=== PATIENT | female | born 1945 | race Caucasian/White ===

== ENCOUNTER → 2016-04-24 | Outpatient (CLI) | payer MEDICARE, BC ==
[~2016-04-24] MED LIST: ASPI-535 PO; ASPI325T32 PO; ATOR10TA65 PO; DICL1TAB53 PO; DOCU-144 PO; FLUT16SP17 NASAL; GLUC500T11 PO; HYDR-906 PO; IBAN150T7 PO; LISI10TA2 PO; MELO-109; PANT40TA4 PO; TRAM50TA2 PO
--- NOTE | 2016-04-24 12:58 | RADRPT ---
PROCEDURE: XR Left hip and pelvis. CLINICAL INDICATION: Left hip pain and pelvic pain. TECHNIQUE: 3 views. Frontal pelvis. Frontal and lateral left hip. COMPARISON: 11/16/2012. FINDINGS: There is no fracture or dislocation. The soft tissues are normal. There are degenerative changes of both hips with large osteophytes and joint space narrowing, worse than seen previously. Calcified fibroids are present in the pelvis. There is no lytic or blastic lesion. The upper pelvis is not included on the images. IMPRESSION: 1. Moderate degenerative changes of both hips, worse than seen previously. 2. Calcified fibroids in the pelvis. 3. Otherwise unremarkable study. RPTAT: QQ .Pieter Saini MD, MD Date Time Electronically viewed and signed by .Pieter Saini MD, on 04/24/2016 12:58 .R/
== END | disposition home or self-care (01) ==
LOC: HKI 10:58
PROVIDERS: ATTEND Orthopaedic Surgery
DX: Z01.818 Encounter for other preprocedural examination (principal); M16.0 Bilateral primary osteoarthritis of hip; M25.552 Pain in left hip; M25.551 Pain in right hip
CPT/HCPCS: 73502; G0463

== ENCOUNTER 2016-04-30 05:32 | Inpatient (IN) | payer MEDICARE, BC ==
[2016-04-29 09:01] VITALS: Ht 162.6 cm; Wt 57.8 kg
[2016-04-30] VITALS (18 sets, daily range): BP systolic 91–132; BP diastolic 48–72; PULSE 52–108; RESP 10–62
[~2016-04-30] VITALS: Ht 162.6 cm; Wt 57.8 kg
[2016-04-30] MEDS ORDERED: PREGABALIN 100 MG CAP ONE (06:26)
[2016-04-30] MEDS ORDERED: DICL1TAB53 PO (06:54)
[2016-04-30] MEDS ORDERED: ATOR10TA65 PO (06:54)
[2016-04-30] MEDS ORDERED: IBAN150T7 PO (06:54)
[2016-04-30] MEDS ORDERED: GLUC500T11 PO (06:54)
[2016-04-30] MEDS ORDERED: FLUT16SP17 NASAL (06:54)
[2016-04-30] MEDS ORDERED: ASPI-535 PO (06:54)
[2016-04-30] MEDS ORDERED: MELO-109 (06:54)
[2016-04-30] MEDS ORDERED: LISI10TA2 PO (06:54)
[2016-04-30] MEDS ORDERED: POLYMYXIN B 500000 UNIT INJ ONE (06:55)
[2016-04-30] MEDS ORDERED: SODIUM CL BACTERIOSTATIC 30 ML INJ ONE (06:55)
[2016-04-30] MEDS ORDERED: VANCOMYCIN 1 GM INJ ONE (06:56)
[2016-04-30] MEDS ORDERED: BACITRACIN 50000 UNITS INJ ONE (06:57)
[2016-04-30] MEDS ORDERED: PROPOFOL 100 ML ONE (06:59)
[2016-04-30] MEDS ORDERED: ETOMIDATE 20 MG INJ ONE (06:59)
[2016-04-30] MEDS ORDERED: ROCURONIUM 50 MG INJ ONE (06:59)
[2016-04-30] MEDS ORDERED: NEOSTIGMINE 3 MG/3 ML SYRINGE ONE (06:59)
[2016-04-30] MEDS ORDERED: GLYCOPYRROLATE 1 MG INJ ONE (06:59)
[2016-04-30] MEDS ORDERED: LIDOCAINE 100 MG SYRINGE ONE (06:59)
[2016-04-30] MEDS ORDERED: PAIN COCKTAIL-CEFUROXIME IRR SCH ×7 (07:00)
[2016-04-30] MEDS ORDERED: MELOXICAM 15 MG TAB PO SCH (07:00)
[2016-04-30] MEDS ORDERED: ONDANSETRON 4 MG INJ ONE (07:00)
[2016-04-30] MEDS ORDERED: SOD CHLORIDE 0.9% IV ONE (07:00)
[2016-04-30] MEDS ORDERED: DEXAMETHASONE 4 MG/ML 1 ML INJ ONE (07:00)
[2016-04-30] MEDS ORDERED: CEFAZOLIN 1 GM INJ ONE (07:00)
[2016-04-30] MEDS ORDERED: EXPAREL NOTE (BUPIVICAINE LIPOSOMAL) XX SCH (07:00)
[2016-04-30] MEDS ORDERED: traMADOL 50 MG TAB X 1 DOSE PO ONE (07:00)
[2016-04-30] MEDS ORDERED: oxyCODONE (CR) 10 MG TAB [oxyCONTIN] X1 DOSE PO ONE (07:00)
[2016-04-30] MEDS ORDERED: MIDAZOLAM 1 MG/ML 2 ML INJ ONE (07:00)
[2016-04-30] MEDS ORDERED: TRANEXAMIC ACID 580 MG in SOD CHLORIDE 0.9% 100 ML IVPB SCH (07:00)
[2016-04-30] MEDS ORDERED: CEFAZOLIN 2GM/50 ML (PMX) 50 ML X1 BEFORE INCISION IVPB ONE (07:00)
[2016-04-30] MEDS ORDERED: TRANEXAMIC ACID IV ONE (07:00)
[2016-04-30] MEDS ORDERED: FENTAnyl 50 MCG/ML VIAL ONE (07:00)
[2016-04-30] MEDS: LACTATED RINGER'S 1,000 ML IV SCH ×4 (07:00→17:39)
--- NOTE | 2016-04-30 07:18 | HPN ---
Date/Time of Note Date/Time of Note DATE: 04/30/16 TIME: 07:17 Interval H&P Admission Note Pt. seen H&P reviewed: No system changes No change from H&P on 04/16/16 by STAN Gardner MD Apr 30, 2016 07:17
[2016-04-30] MEDS ORDERED: hydrALAzine 20 MG INJ IV PRN (08:00)
[2016-04-30] MEDS ORDERED: ONDANSETRON 4 MG INJ IV PRN ×2 (08:00→14:00)
[2016-04-30] MEDS ORDERED: DIPHENHYDRAMINE 50 MG INJ IV PRN (08:00)
[2016-04-30] MEDS ORDERED: LABETALOL HCL 20MG INJ IV PRN (08:00)
[2016-04-30] MEDS ORDERED: HYDROmorphONE (0.2 MG/ML) 10ML SYG IV PRN ×3 (08:00)
[2016-04-30] MEDS ORDERED: MEPERIDINE 25 MG INJ IV PRN (08:00)
[2016-04-30] MEDS ORDERED: FENTAnyl 50 MCG/ML VIAL IV PRN ×3 (08:00)
[2016-04-30] MEDS ORDERED: MIDAZOLAM 1 MG/ML 2 ML INJ IV PRN (08:00)
[2016-04-30] MEDS ORDERED: EPHEDrine SULFATE 50 MG/5 ML SYG IV PRN (08:00)
[2016-04-30] MEDS ORDERED: TRIMETHOBENZAMIDE 100 MG/ML VIAL IM PRN (08:00)
--- NOTE | 2016-04-30 09:39 | OPPN ---
Date/Time of Note Date/Time of Note DATE: 04/30/16 TIME: 09:38 Operative/Procedure Note Dictation # [id number] Pre-Operative Diagnosis Left Hip OA Post-Operative Diagnosis Same Procedure Left Anterior VIVI Surgeon: STAN CHINO MD Psychologist: DAVONTE MISHRA PA-C Anesthesiologist: Adrien Fitzgerald M.D. Findings Severe OA Blood Usage/Administration None Implants/Grafts Depuy VIVI Estimated blood loss: 250 - 300 ml's Drains Hemovac x 1 Specimens Femoral Head Complications: None Anesthesia type: spinal STAN CHINO MD Apr 30, 2016 09:39
--- NOTE | 2016-04-30 09:59 | PN ---
Date/Time of Note Date/Time of Note DATE: 04/30/16 TIME: 09:56 Assessment/Plan Lines/Catheters IV Catheter Type (from Nrsg): Peripheral IV Assessment/Plan Assessment/Plan Stable in PACU, s/p left anterior VIVI -cont abx -pain meds -ASA/SCDs -monitor drain -OOB with PT -check AM labs -d/c aaron in AM XR of the left hip is pending at this time Subjective 24 Hr Interval Summary Stable in PACU. Denies significant pain. Moving all extremities. Exam/Review of Systems Vital Signs Vitals Vital Signs Date Time Temp Pulse Resp B/P Pulse Ox O2 Delivery O2 Flow Rate FiO2 04/30/16 09:50 98.1 04/30/16 06:45 61 18 132/72 100 Room Air Intake and Output 04/29/16 04/29/16 04/30/16 15:00 23:00 07:00 Intake Total 0 ml Balance 0 ml Exam Free Text/Dictation Dressing dry Incision clean, dry, and intact without redness or drainage 5/5 Quadriceps, Tibialis Anterior, EHL, Gastroc, Soleus, Peroneals Normal sensation Palpable DT/PT, CR <2 sec No distal edema DAVONTE MIHSRA PA-C Apr 30, 2016 09:58
[2016-04-30] MEDS ORDERED: NA PHOSPHATE/BIPHOS 133 ML ENEMA PR PRN (10:00)
[2016-04-30] MEDS ORDERED: NACL 0.9% 3 ML SYG IV SCH (10:00)
[2016-04-30] MEDS ORDERED: ASPIRIN (EC) 325 MG TAB PO ONE ×2 (10:00→10:01)
[2016-04-30] MEDS ORDERED: BISACODYL 10 MG SUPP PR PRN (10:00)
[2016-04-30] MEDS ORDERED: MAGNESIUM HYDROXIDE 30ML CUP PO PRN (10:00)
[2016-04-30 10:13] LABS: HEMATOCRIT 33.7 % (37.0-47.0); HEMOGLOBIN 11.4 g/dl (12.0-16.0)
[2016-04-30] MEDS: CEFAZOLIN 2 GM/50 ML (PMX) 50 ML IVPB SCH ×2 (10:15→17:40)
[2016-04-30 10:30] LABS: CALCIUM 8.9 mg/dl (8.4-10.2); CREATININE 0.73 mg/dl (0.44-1.00)
--- NOTE | 2016-04-30 10:41 | RADRPT ---
PROCEDURE: XR Left Hip. CLINICAL INDICATION: Post op in PACU left total hip prosthesis. TECHNIQUE: AP and frog lateral views of the left hip were performed. COMPARISON: None. FINDINGS: Intact leftward hip prosthesis with anatomic alignment of left femoral S10-8 bones. No evidence of fracture, dislocation, or hardware failure. The visualized pelvis and sacrum are intact. IMPRESSION: Intact left total hip prosthesis with anatomic alignment. RPTAT:AAJJ Arcelia Antonio Physician Date Time Electronically viewed and signed by Physician Dl on 04/30/2016 10:41 COREY/
--- NOTE | 2016-04-30 10:41 | RADRPT ---
PROCEDURE: Pelvis x-ray CLINICAL INDICATION: Post op in PACU total hip replacement. TECHNIQUE: Single AP view of the pelvis performed. COMPARISON: None FINDINGS: There is a left total hip prosthesis in place with anatomic alignment of the femoral mass and bones. No evidence of loosening, fracture, or dislocation. Advanced osteoarthritic degenerative changes of the right hip joint with subchondral sclerosis of the acetabular roof and joint line spurring is noted. Prominent femoral head joint line spurring is present greatest inferiorly and medially. Deg enerate changes of the sacroiliac joints bilaterally left greater than right. Calcified uterine fib roids. IMPRESSION: Intact left total hip prosthesis. Degenerative changes of the right hip and sacroiliac joints as de scribed above. RPTAT:AAJJ Physician Dl Date Time Electronically viewed and signed by Physician Dl on 04/30/2016 10:40 COREY/
--- NOTE | 2016-04-30 10:45 | RADRPT ---
PROCEDURE: Fluoroscopy. CLINICAL INDICATION: Intraoperative fluoroscopic guidance. Left total hip prosthesis. TECHNIQUE: Fluoroscopic guidance provided for intraoperative procedure. COMPARISON: 04/15/2016 CT abdomen. FINDINGS: 0.8 minutes fluoroscopy time was used. 16 intraoperative spot radiographs obtained. Left total hip placement. IMPRESSION: Fluoroscopic guidance provided for intraoperative procedure. RPTAT:AAJJ Physician Dl Date Time Electronically viewed and signed by Physician Dl on 04/30/2016 10:44 COREY/
[2016-04-30] MEDS: traMADol 50 MG TAB PO SCH ×3 (11:38→23:49)
[2016-04-30] MEDS: ACETAMINOPHEN 1000MG/100ML IV 100 ML IVPB SCH ×2 (11:39→17:39)
--- NOTE | 2016-04-30 12:59 | OPR ---
DATE OF OPERATION: 04/30/2016 DATE: 04/30/2016. PREOPERATIVE DIAGNOSIS: Left hip osteoarthritis. POSTOPERATIVE DIAGNOSIS: Left hip osteoarthritis. OPERATION PERFORMED: Left anterior total hip arthroplasty. SURGEON: Stan Ghotra MD ADJUSTMENT EXAMINER: DEVANG Hernadez COMPONENTS USED: DePuy size 52 mm Gription pinnacle cup, 52/36 neutral Ultrex polyethylene liner, s ize 6 standard ACTIS stem, 36+5 ceramic head. ANESTHESIA: Spinal plus general endotracheal intubation plus periarticular injection. ANESTHESIOLOGIST: Dr. Vance ESTIMATED BLOOD LOSS: 250 mL . INTRAVENOUS FLUIDS: Crystalloid 2100 mL SPECIMENS: Femoral head. DRAINS: Hemovac x1 COMPLICATIONS: None. DISPOSITION: The patient tolerated the procedure well and was taken to the recovery room in stable c ondition. INDICATIONS: The patient is a 70-year-old woman who has had progressive worsening pain in the left h ip with radiographic evidence of severe osteoarthritis. She has failed non-surgical means of treatm ent to control her pain, including activity modifications, pain medications and ambulatory assist de vices. Despite these measures, she has had worsening pain. I felt she would benefit from a total h ip arthroplasty with an anterior approach. I felt the patient would benefit from a total hip arthroplasty through an anterior approach. The risks, benefits, and alternatives of the procedure were explained in detail to the patient. I ex plained the risks of the surgery to include, but not be limited to: bleeding and possible need for b lood transfusion; infection; pain; stiffness; neurovascular injury with possible numbness, weakness, and/or paralysis anywhere from the hip down to the toes; fracture; instability; dislocation; leg le ngth inequality; wear and/or loosening of the prosthesis and possible need for future revision; bloo d clots; pulmonary embolism; and anesthetic complications such as heart attack, stroke, GI bleed, pn eumonia, and/or . Ample time was allowed for the patient to ask questions, all of which were ad dressed and answered. The patient understood the risks involved and wished to proceed. Informed cons ent was signed prior to the procedure. PROCEDURE: The patient's left hip was initialed with a marking pen in the preoperative area to ident navid the correct operative site. The patient was brought to the operating room and transferred from [facility] to the [facility] where a spinal anesthetic was administered. The patient was the n anesthetized and intubated. A Newman catheter was placed. Both feet were placed into well-padded keyon ots which were then placed into the leg holders of the traction booms. A timeout was performed to co nfirm that the left side was the correct operative site. The patient was given 2 g of intravenous An cef within one hour prior to the procedure. The operative hip was prepped and draped in the usual st erile fashion. A 10 cm oblique incision was made over the anterior aspect of the hip and carried down through subcu taneous tissue and fat with sharp dissection. The tensor fascia aurelio was incised along the length of the wound. The tensor fascia muscle was retracted laterally and the sartorius medially. The anterio r circumflex vessels were identified and tied off with 2-0 silk suture and coagulated with the [employer] loom fixer helper. The rectus femoris was elevated off the anterior capsule and an anterior capsulec arsen performed. A femoral neck osteotomy was made and the head removed from the acetabulum. The acet abulum was denuded of cartilage circumferentially, as was the femoral head. Retractors were placed a round the acetabulum. The remnants of the labrum and ligamentum teres were excised. I reamed the porter tabulum to the medial wall and then went into an anatomic position and increased the reamer size in 2 mm increments until I got a good bite and was down to bleeding subchondral bone. The [place] cup was opened and impacted into the acetabulum and sat flush circumferentially, gettin g a good bite. C-arm imaging showed it had about 40 to 45 degrees of abduction and 20 degrees of ant eversion. The real liner was opened and impacted into the acetabulum and sat flush circumferentially . Attention was turned towards the femur. The operative leg was carefully lowered to the floor with the leg adducted. The foot was then roll mill operator ally rotated to approximately 110 degrees. A posteromedial release was performed to optimize exposur e. The femoral hook was placed underneath the proximal femur and the hydraulic lift was then used to elevate the femur up out of the wound. The cooknilesh cutter osteotome was used to remove the remaining overhanging greater trochanter. The femur was then broached, going up in one size increments until it sat flush with the neck cut and a stable fit was achieved. The trial neck and head were assembled and reduced into the acetabulum. Fluoroscopic imaging showed the components to be in good position and the leg lengths and offsets to be equal. At this point, the trial was dislocated and the trial broach removed. The canal was irrigated and dr ahumada. The real stem was opened and impacted into the femur. The trunnion was irrigated and dried, and the real femoral head was impacted onto the trunnion, and reduced into the acetabulum. The soft tissues were infiltrated with a mixture of 150 mg of 0.5% Bupivacaine, 8 mg of Duramorph, 3 00 mcg of epinephrine, 30 mg of Toradol, 100 mcg of clonidine, 750 mg of cefuroxime and 86 mL of nor mal saline, followed by an injection of 266 mg of liposomal Bupivacaine. At this point the hip was i rrigated with a mixture of betadine/saline and then antibiotic saline with pulsatile lavage. A Hemov ac drain was placed in the deep portion of the wound and brought out the anterolateral thigh. There was good hemostasis. The tensor fascia aurelio was repaired with a running #1 Vicryl. The deep fat laye r was irrigated and closed with 2-0 Stratafix and the subcutaneous layer closed with 3-0 Stratafix a nd the skin was sealed with Prineo Dermabond. The drain was secured with 3-0 nylon. Dictated By: STAN FREEMAN/LASHAY Conf#: [id number] DID#: [id number]
[2016-04-30] MEDS: LISINOPRIL 10 MG TAB PO SCH (13:30)
[2016-04-30] MEDS ORDERED: HYDROmorphONE 1 MG/ML SYG IV PRN (14:00)
[2016-04-30] MEDS ORDERED: oxyCODONE 5 MG TAB PO PRN ×2 (14:00)
[2016-04-30] MEDS ORDERED: DIPHENHYDRAMINE 25 MG CAP PO PRN (14:00)
--- NOTE | 2016-04-30 14:23 | CONS ---
DATE OF ADMISSION: 04/30/2016 DATE OF CONSULTATION: 04/30/2016 TYPE OF CONSULTATION: Postoperative medical. Dear Dr. Ghotra: Thank you very much for allowing me to evaluate the above patient who just underwent left total hip replacement. HISTORICAL EVENTS: As you well know, this patient has had progressive disabling pain involving her left hip and for this, underwent surgery today. Postoperatively, on the orthopedic floor. She jesse es cough, wheezing, shortness of breath, nausea, vomiting, abdominal or chest pain and notes only mi ld discomfort involving her left hip. MEDICATIONS PRIOR TO ADMISSION: 1. Aspirin 81 mg. 2. Glucosamine 500 mg b.i.d. 3. Lisinopril 10 mg per day. 3. Fish oil 1000 mg b.i.d. 4. Flonase 50 mcg 1 spray in each nostril daily. 5. Boniva 150 mg a day. 6. Atorvastatin 10 mg per day. 7. Meloxicam 15 mg per day. PAST MEDICAL HISTORY: Includes hypertension, hyperlipidemia, osteoporosis, low back pain, undergoin g surgery 3 to 4 years ago. FAMILY HISTORY: Positive for multiple myeloma, hypertension, hyperlipidemia. SOCIAL HISTORY: She is a nonsmoker, does not drink. 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 Has 2 sons. ALLERGIES: SULFA. PHYSICAL EXAMINATION: GENERAL: [place] female in no acute distress. VITAL SIGNS: BP 122/80, pulse 70, respirations are 20, she was afebrile. EYES: Extraocular muscles were full. NOSE, MOUTH, AND THROAT: Normal. NECK: Supple. There was no jugular venous distention, thyroid enlargement or adenopathy. Carotids 2+, no bruits. LUNGS: Clear. HEART: Rhythm regular, no murmur. No third or fourth sound. ABDOMEN: Nontender. Liver and spleen were not palpable. No masses or tenderness were noted. EXTREMITIES: No edema, no calf tenderness. Pulses 2+. IMPRESSION: 1. Stable postoperative left hip replacement. 2. History of hypertension. Will continue her LIVIER inhibitor and monitor BP closely. 3. Will follow daily for signs and symptoms of thromboembolic disease despite appropriate DVT proph ylaxis. 4. Hyperlipidemia. Continue statin therapy. Dictated By: NAHUM QIU MD MR/LASHAY Conf#: [id number] DID#: [id number]
[2016-04-30] MEDS ORDERED: PREGABALIN 300 MG PO X1 PO ONE (15:00)
[2016-04-30] MEDS ORDERED: BUPIVACAINE LIPOSOME/PF 266 MG/20 ML VIAL INFIL SCH (15:00)
[2016-04-30] MEDS: PANTOPRAZOLE (EC) 40 MG TAB PO SCH (17:39)
[2016-04-30] MEDS: DOCUSATE SODIUM 100 MG CAP PO SCH (20:37)
[2016-04-30] MEDS: ATORVASTATIN 10 MG TAB PO SCH (20:37)
[2016-04-30] MEDS: PREGABALIN 25 MG CAP PO SCH (20:38)
[2016-05-01] MEDS: ACETAMINOPHEN 1000MG/100ML IV 100 ML IVPB SCH ×2 (00:03→05:41)
[2016-05-01] MEDS: LACTATED RINGER'S 1,000 ML IV SCH ×6 (01:22→23:00)
[2016-05-01] MEDS: CEFAZOLIN 2 GM/50 ML (PMX) 50 ML IVPB SCH (02:32)
[2016-05-01 05:07] LABS: HEMATOCRIT 28.8 % (37.0-47.0); HEMOGLOBIN 9.7 g/dl (12.0-16.0)
[2016-05-01 05:33] LABS: POTASSIUM 4.5 mmol/L (3.5-5.1)
[2016-05-01 05:36] LABS: CALCIUM 8.9 mg/dl (8.4-10.2); CREATININE 0.79 mg/dl (0.44-1.00)
[2016-05-01] MEDS: PANTOPRAZOLE (EC) 40 MG TAB PO SCH ×2 (05:41→17:43)
[2016-05-01] MEDS: traMADol 50 MG TAB PO SCH ×4 (05:41→23:59)
[2016-05-01 07:00] VITALS: BP 102/52; RESP 60
[2016-05-01] MEDS: PREGABALIN 25 MG CAP PO SCH ×2 (08:35→20:27)
[2016-05-01] MEDS: ASPIRIN (EC) 325 MG TAB PO SCH ×2 (08:35→20:27)
[2016-05-01] MEDS: DOCUSATE SODIUM 100 MG CAP PO SCH ×2 (08:35→20:27)
[2016-05-01] MEDS: FLUTICASONE 0.05% 16 GM NAS SPRAY NASAL SCH (08:36)
[2016-05-01] MEDS: LISINOPRIL 10 MG TAB PO SCH (08:37)
--- NOTE | 2016-05-01 08:49 | CONS ---
Date/Time of Note Date/Time of Note DATE: 05/01/16 TIME: 08:48 Assessment/Plan Assessment/Plan Additional Assessment/Plan 1. Stable postoperative left hip replacement. 2. History of hypertension, BP controlled 3. Hyperlipidemia, to continue statin therapy. Consultation Date/Type/Reason Admit Date/Time Apr 30, 2016 at 05:32 Initial Consult Date Detailed Summary Respiratory: No cough, No shortness of breath Cardiovascular: No chest pain, No orthopenea Gastrointestinal: no complaints Genitourinary: no complaints Musculoskeletal: bone/joint pain (mild left hip pain) Exam/Review of Systems Vital Signs Vitals Vital Signs Date Time Temp Pulse Resp B/P Pulse Ox O2 Delivery O2 Flow Rate FiO2 05/01/16 07:00 98.4 60 60 102/52 95 04/30/16 13:45 Nasal Cannula 1.0 Intake and Output 04/30/16 04/30/16 05/01/16 15:00 23:00 07:00 Intake Total 2505.8 ml 530 ml 2325 ml Output Total 850 ml 400 ml 960 ml Balance 1655.8 ml 130 ml 1365 ml Exam Neck: No jvd Respiratory: clear to auscultation Cardiovascular: regular rate and rhythm Gastrointestinal: soft Extremities: No edema (and no calf tend) Results Result Diagram: 05/01/16 0420 05/01/16 0420 Results 24 hrs Laboratory Tests Test 04/30/16 09:45 05/01/16 04:20 Anion Gap 10 10 Blood Urea Nitrogen 20 19 Calcium Level 8.9 8.9 Carbon Dioxide Level 26 29 Chloride Level 110 105 Creatinine 0.73 0.79 Glucose Level 135 105 Hematocrit 33.7 L 28.8 L Hemoglobin 11.4 L 9.7 L Potassium Level 4.0 4.5 Sodium Level 142 139 Medications Medications Current Medications Lactated Ringer's (Lr) 1,000 ml @ 100 mls/hr Q10H IV ; Start 04/30/16 at 07:00 Fluticasone Propionate 1 spray 1 spray DAILY NASAL Last administered on 08:36; Admin Dose 1 SPRAY; Start 05/01/16 at 09:00 Lactated Ringer's 1,000 ml @ 125 mls/hr Q8H IV Last administered on 04/30/16 17:39; Admin Dose 125 MLS/HR; Start 04/30/16 at 09:42 Acetaminophen (Ofirmev 1000mg/ 100ml Iv) 100 ml @ 400 mls/hr Q6 IVPB Last administered on 05/01/16 05:41; Admin Dose 400 MLS/HR; Start 04/30/16 at 12:00; Stop 05/01/16 at 11:59 Tramadol HCl (Ultram) 50 mg Q6 PO Last administered on 05/01/16 05:41; Admin Dose 50 MG; Start 04/30/16 at 12:00; Stop 05/03/16 at 11:59 Oxycodone HCl (Roxicodone) 5 mg Q4H PRN PO PAIN LEVEL 1-3; Start 04/30/16 at 14 :00 Oxycodone HCl (Roxicodone) 10 mg Q4H PRN PO PAIN LEVEL 4-7; Start 04/30/16 at 14:00 Hydromorphone HCl (Dilaudid) 1 mg Q3H PRN IV PAIN LEVEL 8-10; Start 04/30/16 at 14:00 Ondansetron HCl (Zofran Inj) 4 mg Q6H PRN IV NAUSEA AND/OR VOMITING Last administered on 04/30/16 18:15; Admin Dose 4 MG; Start 04/30/16 at 14:00 Bisacodyl (Dulcolax Supp) 10 mg Q12H PRN [place] CONSTIPATION; Start 04/30/16 at 10: 00 Magnesium Hydroxide (Milk Of Mag) 30 ml BID PRN PO CONSTIPATION; Start at 10:00 Sodium Biphosphate/ Sodium Phosphate (Fleet Enema) 133 ml DAILY PRN [place] CONSTIPATION; Start 04/30/16 at 10:00 Docusate Sodium (Colace) 100 mg BID PO Last administered on 05/01/16 08:35; Admin Dose 100 MG; Start 04/30/16 at 21:00 Diphenhydramine HCl (Benadryl) 25 mg Q6H PRN PO PRURITUS; Start 04/30/16 at 14: 00 Aspirin (Ecotrin) 325 mg BID PO Last administered on 05/01/16 08:35; Admin Dose 325 MG; Start 05/01/16 at 09:00 Pregabalin (Lyrica) 50 mg BID PO Last administered on 05/01/16 08:35; Admin Dose 50 MG; Start 04/30/16 at 21:00 Pantoprazole (Protonix Tab) 40 mg BID@06,18 PO Last administered on 05/01/16 05 :41; Admin Dose 40 MG; Start 04/30/16 at 18:00 Atorvastatin Calcium (Lipitor) 10 mg QHS PO Last administered on 04/30/16 20: 37; Admin Dose 10 MG; Start 04/30/16 at 21:00 Lisinopril (Zestril) 10 mg DAILY PO ; Start 04/30/16 at 13:30 NAHUM QIU MD May 01, 2016 08:49
--- NOTE | 2016-05-01 09:10 | PN ---
Date/Time of Note Date/Time of Note DATE: 05/01/16 TIME: 09:07 Assessment/Plan Lines/Catheters IV Catheter Type (from Nrsg): Peripheral IV Newman in Place (from Nrsg): No Assessment/Plan Assessment/Plan Stable POD #1 s/p left anterior VIVI -d/c abx -pain meds -ASA/SCDs for DVT prophylaxis -OOB with PT -drain removed -check AM labs -encourage incentive spirometry -d/c planning. Will likely go home tomorrow or friday Subjective 24 Hr Interval Summary No acute overnight events. Denies significant pain. Began PT yesterday. VSS, afebrile. H&H low but will monitor for now. Exam/Review of Systems Vital Signs Vitals Vital Signs Date Time Temp Pulse Resp B/P Pulse Ox O2 Delivery O2 Flow Rate FiO2 05/01/16 07:00 98.4 60 60 102/52 95 04/30/16 13:45 Nasal Cannula 1.0 Intake and Output 04/30/16 04/30/16 05/01/16 15:00 23:00 07:00 Intake Total 2505.8 ml 530 ml 2325 ml Output Total 850 ml 400 ml 960 ml Balance 1655.8 ml 130 ml 1365 ml Exam Free Text/Dictation Hemovac: 330cc Dressing dry Incision clean, dry, and intact without redness or drainage 5/5 Quadriceps, Tibialis Anterior, EHL, Gastroc, Soleus, Peroneals Normal sensation Palpable DT/PT, CR <2 sec No distal edema Results Result Diagram: 05/01/1641905/01/16419 DAVONTE MISHRA PA-C May 01, 2016 09:10
[2016-05-01 09:36] LABS: ADD UMIC YES; URINE BILIRUBIN (Dip) NEGATIVE (NEGATIVE); URINE BLOOD (Dip) 1+ (NEGATIVE); URINE COLOR LT. YELLOW (YELLOW); URINE GLUCOSE (Dip) NEGATIVE (NEGATIVE); URINE KETONES (Dip) NEGATIVE (NEGATIVE); URINE LEUKOCYTE ESTERASE (Dip) NEGATIVE (NEGATIVE); URINE NITRITE (Dip) NEGATIVE (NEGATIVE); URINE TOTAL PROTEIN (Dip) NEGATIVE (NEGATIVE); URINE UROBILINOGEN (Dip) 0.2 E.U./dL (0.1-1.0)
[2016-05-01 09:45] LABS: SQUAMOUS EPITHELIAL CELL,UR FEW
--- NOTE | 2016-05-01 15:47 | PDOCDIS ---
Discharge Instructions DIAGNOSIS Discharge Diagnosis: s/p left anterior VIVI CONDITION Patient Condition: Good HOME CARE INSTRUCTIONS: Diet Instructions: RegularSpecial Diet: REGULAR ACTIVITY: Activity Restrictions: Slowly Increase Activity Rest between Activity Avoid heavy lifting Do not operate Machinery Do not operate Power Tool Avoid Heavy Housework Keep Limb Elevated Bathing Restrictions: ShowerActivity Restrictions Comment: waterproof incision area please FOLLOW UP/APPOINTMENTS Appointments follow up with DR. Ghotra in the office on 05/10/16 OTHER ORDERS: Other Orders: S/P Anterior VIVI Physical Therapy: Three times per week at home x 2 weeks WB STATUS: WBAT Strengthening exercises for both upper and un-operated lower extremities. 1. Gait training with front wheeled walker 2. Wide base gait, no pivot turns. 3. Abductor strengthening. 4. Quadriceps and hamstring strengthening. 5. May switch to cane in contra lateral hand 6 weeks after surgery. 6. Physical Therapy can open case if nursing is not available. 7. Ice Packs while at rest to surgical wound for 20 minutes, 3 times/day. 8. Patient requires mobile SCDs to reduce risk of developing DVT following VIVI. Patient will use the mobile SCDs for 30 days postoperatively. Hip Precautions: No posterior hip precautions. Bathing assistance by home health aide twice weekly if Medicare patient. Occupational Therapy: Evaluation for assistive devices and ADL training. Wound Care: Keep incision dry & covered with Tegaderm until first visit with Dr. Ghotra Anticoagulation Orders: Enteric Coated Aspirin 325 mg po bid x 6 weeks from date of surgery Follow-up:Call for an appointment with Dr. Ghotra in 1 week after discharged from hospital at DME Orders: LIANNA, 3-in-1 Commode, Mobile SCDs DAVONTE MISHRA PA-C May 01, 2016 15:47
[2016-05-01] MEDS ORDERED: PANT40TA4 PO (15:56)
[2016-05-01] MEDS ORDERED: ASPI325T32 PO (15:56)
[2016-05-01] MEDS ORDERED: TRAM50TA2 PO (15:56)
[2016-05-01] MEDS ORDERED: HYDR-906 PO (15:56)
[2016-05-01 19:51] VITALS: BP 94/46; RESP 67
[2016-05-01] MEDS: ATORVASTATIN 10 MG TAB PO SCH (20:27)
[2016-05-02] MEDS: LACTATED RINGER'S 1,000 ML IV SCH ×5 (01:42→18:26)
[2016-05-02 05:14] LABS: HEMATOCRIT 29.4 % (37.0-47.0); HEMOGLOBIN 9.7 g/dl (12.0-16.0)
[2016-05-02] MEDS: traMADol 50 MG TAB PO SCH ×3 (05:19→17:47)
[2016-05-02] MEDS: PANTOPRAZOLE (EC) 40 MG TAB PO SCH ×2 (05:19→17:47)
[2016-05-02 06:28] LABS: POTASSIUM 4.3 mmol/L (3.5-5.1)
[2016-05-02 06:31] LABS: CREATININE 0.72 mg/dl (0.44-1.00)
[2016-05-02 06:32] LABS: CALCIUM 8.6 mg/dl (8.4-10.2)
[2016-05-02 08:01] VITALS: BP 101/54; RESP 18
[2016-05-02] MEDS: LISINOPRIL 10 MG TAB PO SCH (08:15)
[2016-05-02] MEDS: ASPIRIN (EC) 325 MG TAB PO SCH (08:40)
[2016-05-02] MEDS: PREGABALIN 25 MG CAP PO SCH (08:40)
[2016-05-02] MEDS: FLUTICASONE 0.05% 16 GM NAS SPRAY NASAL SCH (08:40)
[2016-05-02] MEDS: DOCUSATE SODIUM 100 MG CAP PO SCH (08:41)
--- NOTE | 2016-05-02 11:06 | CONS ---
Date/Time of Note Date/Time of Note DATE: 05/02/16 TIME: 11:05 Assessment/Plan Assessment/Plan Additional Assessment/Plan 1. Stable postoperative left hip replacement. 2. History of hypertension, BP controlled 3. Hyperlipidemia, to continue statin therapy. Consultation Date/Type/Reason Admit Date/Time Apr 30, 2016 at 05:32 Detailed Summary Respiratory: No cough Cardiovascular: edema, No chest pain Gastrointestinal: no complaints Genitourinary: no complaints Musculoskeletal: bone/joint pain (mild left hip pain) Exam/Review of Systems Vital Signs Vitals Vital Signs Date Time Temp Pulse Resp B/P Pulse Ox O2 Delivery O2 Flow Rate FiO2 05/02/16 08:01 98.0 75 18 101/54 93 04/30/16 13:45 Nasal Cannula 1.0 Intake and Output 05/01/16 05/01/16 05/02/16 15:00 23:00 07:00 Intake Total 1300 ml 700 ml Balance 1300 ml 700 ml Exam Neck: No jvd Respiratory: clear to auscultation Cardiovascular: nl pulses, regular rate and rhythm Gastrointestinal: soft Extremities: No edema (and no calf tend) Results Result Diagram: 05/02/16 0450 05/02/16 0450 Results 24 hrs Laboratory Tests Test 05/02/16 04:50 Anion Gap 9 Blood Urea Nitrogen 13 Calcium Level 8.6 Carbon Dioxide Level 30 Chloride Level 103 Creatinine 0.72 Glucose Level 95 Hematocrit 29.4 L Hemoglobin 9.7 L Potassium Level 4.3 Sodium Level 138 Medications Medications Current Medications Lactated Ringer's (Lr) 1,000 ml @ 100 mls/hr Q10H IV ; Start 04/30/16 at 07:00 Fluticasone Propionate 1 spray 1 spray DAILY NASAL Last administered on 08:40; Admin Dose 1 SPRAY; Start 05/01/16 at 09:00 Lactated Ringer's (Lr) 1,000 ml @ 125 mls/hr Q8H IV Last administered on 17:39; Admin Dose 125 MLS/HR; Start 04/30/16 at 09:42 Tramadol HCl (Ultram) 50 mg Q6 PO Last administered on 05/02/16 05:19; Admin Dose 50 MG; Start 04/30/16 at 12:00; Stop 05/03/16 at 11:59 Oxycodone HCl (Roxicodone) 5 mg Q4H PRN PO PAIN LEVEL 1-3 Last administered on 05/01/16 15:29; Admin Dose 5 MG; Start 04/30/16 at 14:00 Oxycodone HCl (Roxicodone) 10 mg Q4H PRN PO PAIN LEVEL 4-7 Last administered on 05/01/16 20:28; Admin Dose 10 MG; Start 04/30/16 at 14:00 Hydromorphone HCl (Dilaudid) 1 mg Q3H PRN IV PAIN LEVEL 8-10; Start 04/30/16 at 14:00 Ondansetron HCl (Zofran Inj) 4 mg Q6H PRN IV NAUSEA AND/OR VOMITING Last administered on 04/30/16 18:15; Admin Dose 4 MG; Start 04/30/16 at 14:00 Bisacodyl (Dulcolax Supp) 10 mg Q12H PRN [place] CONSTIPATION; Start 04/30/16 at 10: 00 Magnesium Hydroxide (Milk Of Mag) 30 ml BID PRN PO CONSTIPATION Last administered on 05/02/16 05:19; Admin Dose 30 ML; Start 04/30/16 at 10:00 Sodium Biphosphate/ Sodium Phosphate (Fleet Enema) 133 ml DAILY PRN [place] CONSTIPATION; Start 04/30/16 at 10:00 Docusate Sodium (Colace) 100 mg BID PO Last administered on 05/02/16 08:41; Admin Dose 100 MG; Start 04/30/16 at 21:00 Diphenhydramine HCl (Benadryl) 25 mg Q6H PRN PO PRURITUS; Start 04/30/16 at 14: 00 Aspirin (Ecotrin) 325 mg BID PO Last administered on 05/02/16 08:40; Admin Dose 325 MG; Start 05/01/16 at 09:00 Pregabalin (Lyrica) 50 mg BID PO Last administered on 05/02/16 08:40; Admin Dose 50 MG; Start 04/30/16 at 21:00 Pantoprazole (Protonix Tab) 40 mg BID@,18 PO Last administered on 05/02/16 05 :19; Admin Dose 40 MG; Start 04/30/16 at 18:00 Atorvastatin Calcium (Lipitor) 10 mg QHS PO Last administered on 05/01/16 20:27 ; Admin Dose 10 MG; Start 04/30/16 at 21:00 Lisinopril (Zestril) 10 mg DAILY PO ; Start 04/30/16 at 13:30 NAHUM QIU MD May 02, 2016 11:06
--- NOTE | 2016-05-02 11:08 | PN ---
Date/Time of Note Date/Time of Note DATE: 05/02/16 TIME: 11:07 Assessment/Plan Lines/Catheters IV Catheter Type (from Nrsg): Saline Lock Newman in Place (from Nrsg): No Assessment/Plan Assessment/Plan Stable POD #2 s/p left anterior VIVI -pain meds -ASA/SCDs -dressing changed today -OOB with PT -d/c home today -follow up in the office with Dr. Ghotra on 05/10/16 Subjective 24 Hr Interval Summary Doing well. No acute overnight events. Denies significant pain. Progressing nicely with PT. Would like to go home today. Exam/Review of Systems Vital Signs Vitals Vital Signs Date Time Temp Pulse Resp B/P Pulse Ox O2 Delivery O2 Flow Rate FiO2 05/02/16 08:01 98.0 75 18 101/54 93 04/30/16 13:45 Nasal Cannula 1.0 Intake and Output 05/01/16 05/01/16 05/02/16 15:00 23:00 07:00 Intake Total 1300 ml 700 ml Balance 1300 ml 700 ml Exam Free Text/Dictation Dressing dry Incision clean, dry, and intact without redness or drainage 5/5 Quadriceps, Tibialis Anterior, EHL, Gastroc, Soleus, Peroneals Normal sensation Palpable DT/PT, CR <2 sec No distal edema Results Result Diagram: 05/02/1644905/02/16449 DAVONTE MISHRA PA-C May 02, 2016 11:08
[2016-05-02] MEDS ORDERED: DOCU-144 PO (11:13)
[2016-05-02] MEDS ORDERED: POLYETHYLENE GLYCOL 17 GM PACKET PO ONE (14:30)
[2016-05-02] MEDS ORDERED: DOCUSATE SODIUM 100 MG CAP PO ONE (14:30)
[2016-05-02] MEDS ORDERED: VITAMIN A & D 5 GM OINT PACKET TOP ONE (15:42)
[2016-05-02 19:52] VITALS: BP 125/59; RESP 20
--- NOTE | 2016-05-03 09:21 | DS ---
DATE OF ADMISSION: 04/30/2016 DATE OF DISCHARGE: 05/02/2016 CONDITION UPON DISCHARGE: Stable. ADMITTING DIAGNOSIS: Left hip osteoarthritis. DISCHARGE DIAGNOSIS: Status post left anterior total hip arthroplasty. PROCEDURE PERFORMED: Left anterior total hip arthroplasty. HOSPITAL COURSE: This is a 70-year-old female who was seen in the clinic initially complaining of l eft hip pain. She was noted to have advanced osteoarthritis of the left hip and it was thought she would benefit from a left anterior total hip arthroplasty. On 04/30/2016 the patient was admitted a nd taken to the operating room, where she underwent a left anterior total hip arthroplasty. There w ere no intraoperative complications. The patient tolerated the procedure well. She was taken to [facility] recovery room in stable condition. Pain was well controlled with oral pain medication. She was s tarted on aspirin and SCDs for DVT prophylaxis. She remained hemodynamically stable and neurovascul juarez intact throughout her hospital stay. On postoperative day 1 she began physical therapy and con tinues to make good progress. On postoperative day 2 it was deemed she was clinically stable for karley mora. Prior to discharge the incision was inspected and noted to be clean, dry and intact. Dres sing changes were done prior to the patient going home. LABORATORY ANALYSIS UPON DISCHARGE: Hemoglobin 9.7, hematocrit 29.4. Chemistry panel was within no rmal limits. DISCHARGE MEDICATIONS: 1. Jackson 5/325 mg. 2. Tramadol 50 mg. 3. Aspirin 325 mg. 4. Colace 100 mg. 5. Additionally, the patient is to resume all of her normal home medications. DISCHARGE INSTRUCTIONS: The patient will be discharged home in stable condition. She is to resume a normal diet. Activities include weightbearing as tolerated on the left lower extremity. She will begin physical therapy with home health. She will be discharged home with the medications noted ab ove. Additionally, she is to resume all of her normal home medications. The patient is to call the office or return to the emergency room for any concerns, including increased redness, swelling, laura inage, fever or any concerns regarding the operation or the site of incision. FOLLOWUP: The patient is to follow up with Dr. Ghotra in the office on 05/02/2016. Dictated By: DAVONTE CAMEJO/LASHAY Conf#: [id number] [facility]#: [id number]
== END 2016-05-02 20:15 | disposition home or self-care (01) | DRG 470 ==
LOC: REC 05:32 → MS1 10:37
PROVIDERS: ADMIT Orthopaedic Surgery; ATTEND Orthopaedic Surgery
PROC: 0SRB04Z Replacement of Left Hip Joint with Ceramic on Polyethylene Synthetic Substitute, Open Approach (ICD-10-PCS; principal; 2016-04-30 07:00)
DX: M16.12 Unilateral primary osteoarthritis, left hip (principal); I10 Essential (primary) hypertension; E78.5 Hyperlipidemia, unspecified; Z79.82 Long term (current) use of aspirin
CPT/HCPCS: 72170; 73500; 73530; 80048; 81001; 81003; 85014; 85018; 86850; 86900; 86901; 86920; 87081; 87086; 88304; 88311; 97110; 97116; 97162; 97166; 97530; Z7610; C1776; J0131; J0171; J0690; J0697; J0735; J1100; J1885; J2001; J2250; J2274; J2405; J2710; J3010; J3370; J7120

== ENCOUNTER → 2016-05-10 | Outpatient (CLI) | payer MEDICARE, BC ==
[~2016-05-10] MED LIST changes: -ASPI-535 PO; -DICL1TAB53 PO; -GLUC500T11 PO; -MELO-109
--- NOTE | 2016-05-10 15:18 | HKNOTE ---
DATE OF SERVICE: 05/10/2016 HISTORY OF PRESENT ILLNESS: The patient presents today for followup evaluation on her left hip. She is now 10 days status post left anterior total hip arthroplasty. She is doing well overall. She denies any significant pain. She is doing home health. She is ambulating with a cane intermittently. She has been taking aspirin twice a day as prescribed. She presents today for her first postoperative evaluation. PHYSICAL EXAMINATION: On examination today, she is alert and oriented x4, in no acute distress. She is walking without any assistive devices. Examining the incision demonstrates it to be clean, dry, and intact. There is no erythema or warmth. Minerva's sign is negative. Compartments are soft. She is neurovascularly intact distally. She is able to do a straight leg raise. IMAGING: X-rays of left hip were obtained today and reviewed by me. They show good anatomic location of the left hip with no evidence of fracture or dislocation. ASSESSMENT AND PLAN: The patient is now 10 days status post left anterior total hip arthroplasty. The Prineo was removed today, and Steri-Strips were applied. She was advised to continue home health and can transition to outpatient physical therapy if needed. I advised her to continue the aspirin 325 mg twice a day for 6 weeks. She demonstrates understanding. We will see her back in 4 weeks for repeat evaluation. Dictated By: DAVONTE SIDDIQI for STAN CAMEJO/LASHAY Conf#: [id number] DID#: [id number] [id number]
--- NOTE | 2016-05-11 11:48 | RADRPT ---
PROCEDURE: XR pelvis/left hip. CLINICAL INDICATION: Hip pain TECHNIQUE: AP pelvis/lateral left hip view performed. COMPARISON: 04/30/2016 FINDINGS: There is a left total hip replacement. There is no evidence of loosening of the prosthesis. There is moderate to severe right hip osteoarthrosis. This is associated with joint space narrowing, subchondral sclerosis and osteophytosis. There is normal osseous mineralization. No fractures or osseous lesions are identified. The soft tissues are unremarkable. IMPRESSION: Left total hip replacement. Moderate to severe right hip osteoarthrosis. RPTAT: HGDB .Martin Osorio MD, Date Time Electronically viewed and signed by .Martin Osorio MD, on 05/11/2016 11:48 .B/
== END | disposition home or self-care (01) ==
LOC: HKI 13:16
PROVIDERS: ATTEND Orthopaedic Surgery
DX: Z47.1 Aftercare following joint replacement surgery (principal); Z96.642 Presence of left artificial hip joint
CPT/HCPCS: 73502; G0463

== ENCOUNTER → 2016-06-07 | Outpatient (CLI) | payer MEDICARE, BC ==
--- NOTE | 2016-06-07 14:05 | RADRPT ---
PROCEDURE: XR pelvis/left hip. CLINICAL INDICATION: Hip pain TECHNIQUE: AP pelvis/lateral left hip view performed. COMPARISON: 05/11/2016 FINDINGS: There is a left total hip replacement. There is no evidence of loosening of the prosthesis. There is moderate to severe right hip osteoarthrosis. This is associated with joint space narrowing, subchondral sclerosis and osteophytosis. There is normal osseous mineralization. No fractures or osseous lesions are identified. The soft tissues are unremarkable. There is a calcified fibroid in the pelvis. IMPRESSION: Left total hip replacement. Moderate to severe right hip osteoarthrosis. RPTAT: HGDB .Martin Osorio MD, MD Date Time Electronically viewed and signed by .Martin Osorio MD, on 06/07/2016 14:04 .B/
== END | disposition home or self-care (01) ==
LOC: HKI 13:18
PROVIDERS: ATTEND Orthopaedic Surgery
DX: Z47.1 Aftercare following joint replacement surgery (principal); Z96.642 Presence of left artificial hip joint
CPT/HCPCS: 73502

== ENCOUNTER → 2016-08-23 | Outpatient (CLI) | payer MEDICARE, BC ==
--- NOTE | 2016-08-23 14:25 | RADRPT ---
PROCEDURE: XR pelvis/left hip. CLINICAL INDICATION: Hip pain TECHNIQUE: AP pelvis/AP and lateral left hip views performed. COMPARISON: 06/07/2016 FINDINGS: There is a left total hip replacement. There is no evidence of loosening of the prosthesis. No hardw are failure identified. There is moderate to severe right hip osteoarthrosis. This is associated with joint space narrowing, subchondral sclerosis and osteophytosis. There is normal osseous mineralization. No fractures or osseous lesions are identified. There are calcified fibroids in the pelvis. The soft tissues are u nremarkable. IMPRESSION: Left total hip replacement. Moderate to severe right hip osteoarthrosis. RPTAT: HGDB .Martin Osorio MD, MD Date Time Electronically viewed and signed by .Martin Osorio MD, on 08/23/2016 14:24 .B/
== END | disposition home or self-care (01) ==
LOC: HKI 13:29
PROVIDERS: ATTEND Orthopaedic Surgery
DX: M25.551 Pain in right hip (principal); M16.11 Unilateral primary osteoarthritis, right hip; Z96.642 Presence of left artificial hip joint
CPT/HCPCS: 73502; G0463